=== PATIENT | female | born 1995 | race African-American/Black ===

== ENCOUNTER 2022-03-19 21:38 | Emergency (ER) | payer OTHER ==
[~2022-03-19] VITALS: Ht 172.7 cm; Wt 94.3 kg
--- NOTE | 2022-03-19 21:58 | NUR ---
Patient walked to ER with steady gait, NAD noted
[2022-03-19] MEDS ORDERED: LIDOCAINE 1%-EPI 1:100,000 20 ML VIAL ONE (22:41)
--- NOTE | 2022-03-19 22:46 | NUR ---
Dr Humphrey verbally ordered Lido 1% with Epi
--- NOTE | 2022-03-19 23:10 | NUR ---
Dr. Humphrey at bedside.
[2022-03-19] MEDS ORDERED: SULFAMETH/TRIMETH 800/160 MG TABLET PO ONE (23:30)
[2022-03-19] MEDS ORDERED: SULFAMETH/TRIMETH 800/160 MG TABLET ONE (23:37)
[2022-03-19] MEDS ORDERED: SULF1TAB48 PO (23:45)
[2022-03-19] MEDS ORDERED: LIDOCAINE 1%-EPI 1:100,000 20 ML VIAL IJ ONE (23:45)
--- NOTE | 2022-03-19 23:45 | NUR ---
Patient discharged to home in stable condition. Written and verbal after care instructions given. Patient verbalizes understanding of instructions. Stressed follow up or return to ER for worsening s/s. Patient is a/ox4, NAD noted. Patient is able to ambulate with steady gait
[2022-03-20 00:20] VITALS: BP 125/68
== END 2022-03-19 23:45 | disposition home or self-care (01) ==
LOC: ER 21:38
DX: L05.01 Pilonidal cyst with abscess (principal)
CPT/HCPCS: 10080; 99283; J3490; A4663